=== PATIENT | female | born 1980 | race Caucasian/White ===

== ENCOUNTER 2020-08-18 10:40 | Emergency (ER) | payer SELFPAY ==
[~2020-08-18] VITALS: Ht 154.9 cm; Wt 52.2 kg
[2020-08-18] MEDS ORDERED: HYDROCODONE/APAP 7.5MG-325MG 1 EA TAB PO NR (11:00)
[2020-08-18] MEDS ORDERED: KETOROLAC TROMETHAMINE 60 MG/2 ML VIAL IM NR (11:00)
[2020-08-18] MEDS ORDERED: KETOROLAC TROMETHAMINE 60 MG/2 ML VIAL ONE (11:09)
[2020-08-18 12:16] VITALS: BP 124/74
== END 2020-08-18 12:25 | disposition home or self-care (01) ==
LOC: ER 10:56
DX: M25.561 Pain in right knee (principal); M23.91 Unspecified internal derangement of right knee; S83.91XA Sprain of unspecified site of right knee, initial encounter; F17.210 Nicotine dependence, cigarettes, uncomplicated
CPT/HCPCS: 73562; 99283; J1885

== ENCOUNTER 2020-08-26 11:27 | Emergency (ER) | payer SELFPAY ==
[~2020-08-26] VITALS: Ht 154.9 cm; Wt 52.2 kg
== END 2020-08-26 12:08 | disposition home or self-care (01) ==
LOC: ER 12:04
DX: S83.91XA Sprain of unspecified site of right knee, initial encounter (principal); R20.0 Anesthesia of skin; Y93.01 Activity, walking, marching and hiking; F17.210 Nicotine dependence, cigarettes, uncomplicated
CPT/HCPCS: 99282